=== PATIENT | female | born 1990 | race African-American/Black ===

== ENCOUNTER 2018-03-26 21:37 | Emergency (ER) | payer OTHER ==
[~2018-03-26] VITALS: Ht 167.6 cm; Wt 64.0 kg
[2018-03-26] MEDS ORDERED: FERR-89 PO (21:50)
[2018-03-26] MEDS ORDERED: ALBUTEROL SULFATE HFA 90 MCG/PUFF 8 GM INHALER IH ONE (22:45)
[2018-03-26] MEDS ORDERED: PredniSONE 20 MG TABLET PO ONE (23:00)
[2018-03-26] MEDS ORDERED: IBUPROFEN 400 MG TABLET PO ONE (23:00)
[2018-03-26 23:42] VITALS: BP 133/76
== END 2018-03-27 00:15 | disposition home or self-care (01) ==
LOC: EDBD 21:38 → EMS 21:38
DX: J45.901 Unspecified asthma with (acute) exacerbation (principal); R42 Dizziness and giddiness
CPT/HCPCS: 71045; 81025; 94640; 99283; J7512; J3535